=== PATIENT | female | born 1965 | race Caucasian/White ===

== ENCOUNTER 2018-06-26 15:57 | Outpatient (CLI) | payer BC | END 2018-06-26 15:58 | disposition home or self-care (01) | LOC: BICMAMMO 15:57 | PROVIDERS: ATTEND Internal Medicine | DX: Z12.31 Encounter for screening mammogram for malignant neoplasm of breast (principal) | CPT/HCPCS: 77063; 77067 ==

== ENCOUNTER 2019-10-24 06:08 | Outpatient (CLI) | payer BC ==
[2019-10-24 10:53] LABS: Anion Gap 15 mmol/L (10-20); BUN (Urea Nitrogen) 10 mg/dL (9.8-20.1); Calc. Creatinine Clearance 0 mL/min (70-130); Calcium 9.6 mg/dL (7.8-10.44); Carbon Dioxide 25 mmol/L (22-29); Chloride 96 mmol/L (98-107); Estimated GFR-MDRD 67; Glucose 120 mg/dL (70-105); Potassium 3.3 mmol/L (3.5-5.1); Sodium 133 mmol/L (136-145)
--- NOTE | 2019-10-24 18:48 | EKG ---
Test Reason : Blood Pressure : / mmHG Vent. Rate : 092 BPM Atrial Rate : 092 BPM P-R Int : 148 ms QRS Dur : 084 ms QT Int : 358 ms P-R-T Axes : 051 077 -03 degrees QTc Int : 442 ms Normal sinus rhythm T wave abnormality, consider inferior ischemia Abnormal ECG When compared with ECG of 09-JUN-2014 01:36, T wave inversion now evident in Inferior leads Nonspecific T wave abnormality now evident in Anterolateral leads Confirmed by KEMI VALENCIA, DR. Winters ([id number]) on 10/24/2019 6:48:24 PM Referred By: JAIME Confirmed By:DR. Singh MCMULLEN MD
== END 2019-10-24 06:09 | disposition home or self-care (01) ==
LOC: LABBT 06:08
PROVIDERS: ATTEND Neurological Surgery
DX: Z01.818 Encounter for other preprocedural examination (principal); M48.061 Spinal stenosis, lumbar region without neurogenic claudication
CPT/HCPCS: 80048; 93005; 93010

== ENCOUNTER 2019-10-31 07:43 | Day surgery (SDC) | payer BC ==
[2019-10-24 09:40] VITALS: BMI 29.7
--- NOTE | 2019-10-30 15:25 | HP ---
HISTORY OF PRESENT ILLNESS: Ms. Patton is a very pleasant 54-year-old woman here today to discuss severe lower back pain with bilateral radicular pains and what sounds like claudication symptoms since February of this year. She was rolling over in bed and felt the sudden onset of severe pain. She reports subjective weakness, particularly when walking. The pains are in bilateral lower extremities. She reports chronic problems with the right lower extremity stemming many years before this newest problem. However, has never had issues with the left lower extremity until now. She does have a history of anterior and posterior L5-S1 fusion with Dr. Pate in 2006 and 2007 and had done well from that until this most recent episode. She has treated this with epidural steroid injections and medications as directed by Dr. Herrera at [facility] and while they help, her pains are still profound, her pains worsen with walking and bending. CT and myelogram from [facility] reveals excellent hardware installed fusion across L5-S1, however, there does appear to be moderate to severe central canal stenosis at L3-L4 and to some lesser extent at L4-L5 which very likely explains the symptoms that she is experiencing. PAST MEDICAL HISTORY: Significant for chronic pain syndrome, headaches, hypertension. PAST SURGICAL HISTORY: Lumbar spinal fusion. CURRENT MEDICATIONS: Include 1. Tylenol No. 4. 2. Celebrex. 3. Cyclobenzaprine. 4. Gabapentin. 5. Levothyroxine. 6. Lisinopril-hydrochlorothiazide. 7. Tizanidine. 8. Zolpidem. 9. Prempro. 10. Metoprolol. 11. Rizatriptan. ADDITIONAL PAST SURGICAL HISTORY: Dorsal column stimulator, breast reduction and abdominoplasty, finger pinning and battery replacement in the stimulator. PHYSICAL EXAMINATION: GENERAL: She is alert and oriented x3. Gait is mildly antalgic. EXTREMITIES: Lower extremity exam is normal. ASSESSMENT: Lumbar spinal stenosis and radiculopathy. PLAN: Dr. Medina met with the patient, reviewed imaging, advocated for an L3-L5 decompression. He explained to the patient the risks, benefits, and alternatives of the procedure. The patient expressed understanding and elected to move forward with surgery as discussed. I do believe the patient is mentally competent and capable of making medical decisions for herself. We will move forward with surgery as planned. Job ID: [id number]
[2019-10-31] MEDS ORDERED: Midazolam HCl 2 mg/2 ml Vial ONE (08:53)
[2019-10-31] MEDS ORDERED: Bupivacaine 0.25% HCL 30 ML VIAL ONE (09:13)
[2019-10-31] MEDS ORDERED: PHENYLEPHRINE-NS 100 MCG/ML 10 ML SYRINGE ONE (09:31)
[2019-10-31] MEDS ORDERED: Fentanyl 100 MCG/2 ML VIAL ONE ×4 (09:31→12:18)
[2019-10-31] MEDS ORDERED: Ondansetron PF 4 MG/2 ML Vial ONE (09:31)
[2019-10-31] MEDS ORDERED: Lidocaine 1% PF 5 ML VIAL ONE (09:31)
[2019-10-31] MEDS ORDERED: Glycopyrrolate 0.2 MG/ML 5 ML SYRINGE ONE (09:31)
[2019-10-31] MEDS ORDERED: PROPOFOL 200 MG/20 ML VIAL ONE (09:31)
[2019-10-31] MEDS ORDERED: Rocuronium Bromide 10 MG/ML (10ML VIAL) ONE (09:31)
[2019-10-31] MEDS ORDERED: Dexamethasone 20 MG/5 ML VIAL ONE (09:31)
--- NOTE | 2019-10-31 11:42 | OP ---
DATE OF PROCEDURE: 10/31/2019 [employer]ARY DRUM TANNER: Chapincito Quispe PA-C INDICATION: Pain. DIAGNOSIS: Lumbar stenosis. PROCEDURES PERFORMED: Reoperation lumbar decompression L3-L5. ANESTHESIA: General. DESCRIPTION OF PROCEDURE: The patient was brought into the operating room, placed under general anesthesia. She was flipped from the supine to prone position on the operating room table. A linear incision was planned adjacent to a prior incision that was off midline to the right. After prepping and draping and after an appropriate operative pause, the incision was created. The soft tissues were swept away from midline. The dorsal column stimulator leads were identified and carefully moved without excess traction and remained intact throughout the case. The C-arm images obtained to confirm the appropriate levels. After confirming the appropriate levels, an Adson rongeur was used to remove the spinous process of L4 and the superior aspect of L5 and the inferior aspect of L3. The laminectomy was completed using a high-speed cutting drill bit as well as 2, 3, and 4 mm Kerrisons. After decompressing the segment, the wound was irrigated. Hemostasis was maintained throughout. The wound was then closed in anatomic layers and a pressure dressing was applied. There were no known procedural complications. Job ID: [id number]
[2019-10-31] MEDS ORDERED: HYDROcodone/Acetaminophen 5/325 mg Tablet ONE (12:52)
[2019-10-31] MEDS ORDERED: Morphine 2 MG/ML SYRINGE ONE (14:08)
== END 2019-10-31 14:55 | disposition home or self-care (01) ==
LOC: SDC 07:43
PROVIDERS: ATTEND Neurological Surgery
PROC: 01NB0ZZ Release Lumbar Nerve, Open Approach (ICD-10-PCS; principal; 2019-10-31)
DX: M48.061 Spinal stenosis, lumbar region without neurogenic claudication (principal); M54.16 Radiculopathy, lumbar region; G89.4 Chronic pain syndrome; I10 Essential (primary) hypertension; Z79.899 Other long term (current) drug therapy
CPT/HCPCS: 76000; J0690; J1100; J2001; J2250; J2270; J2405; J2704; J3010; S0020

== ENCOUNTER 2021-12-28 01:20 | Emergency (ER) | payer BC ==
[2021-12-28 01:58] LABS: #Monocytes 0.3 thou/uL (0.11-0.59); #Neutrophils 3.3 thou/uL (1.40-6.50); %Basophils 0.3 % (0.0-1.0); %Eosinophils 0.9 % (0.0-10.0); %Lymphocytes 21.6 % (21.0-51.0); %Monocytes 6.3 % (0.0-10.0); %Neutrophils 70.9 % (42.0-75.0); Hemoglobin 12.9 g/dL (12.0-16.0); Mean Corpuscular HGB CONC 35.4 g/dL (32.0-36.0); Mean Corpuscular Hemoglobin 29.4 pg (27.0-31.0); Mean Corpuscular Volume 83.1 fL (78.0-98.0); Mean Platelet Volume 6.9 fL (7.4-10.4); Platelet Count 197 thou/uL (130-400); White Blood Cell (WBC) Count 4.7 thou/uL (4.8-10.8)
[2021-12-28] MEDS ORDERED: Ketorolac Tromethamine 30 MG/ML VIAL ONE (02:15)
[2021-12-28 02:22] LABS: ALT (SGPT) 16 U/L (8-55); AST (SGOT) 20 U/L (5-34); Albumin 4.5 g/dL (3.5-5.0); Alkaline Phosphatase 85 U/L (40-110); Anion Gap 16 mmol/L (10-20); BUN (Urea Nitrogen) 14 mg/dL (9.8-20.1); Calc. Creatinine Clearance 0 mL/min (70-130); Calcium 9.4 mg/dL (7.8-10.44); Carbon Dioxide 24 mmol/L (22-29); Chloride 87 mmol/L (98-107); Globulin 3.1 g/dL (2.4-3.5); Glucose 107 mg/dL (70-105); Lipase 14 U/L (8-78); Potassium 4.4 mmol/L (3.5-5.1); Protein, Total 7.6 g/dL (6.0-8.3); Sodium 123 mmol/L (136-145)
[2021-12-28] MEDS ORDERED: diphenhydrAMINE 50 MG/ML VIAL ONE (03:42)
[2021-12-28] MEDS ORDERED: Metoclopramide HCl 10 MG/2 ML VIAL ONE (03:42)
[2021-12-28] MEDS ORDERED: Aspirin Chewable 81 MG TAB ONE (03:43)
[2021-12-28] MEDS ORDERED: Diazepam 10 MG/2 ML SYRINGE ONE (05:25)
[2021-12-28 05:50] LABS: Bilirubin Negative (Negative); Blood, Urine Negative (Negative); Clarity Clear (Clear); Glucose, Urine (Dipstick) Normal (Negative); Ketone, Urine 20 mg/dL (Negative); Leukocyte Negative Leu/uL (Negative); Nitrite Negative (Negative); Protein, Urine (Dipstick) Negative (Neg-Trace); Specific Gravity, Urine 1.012 (1.002-1.036); Urobilinogen Normal mg/dL (Less than 2); pH, Urine 7.5 (5.0-9.0)
[2021-12-28 15:31] LABS: SARS-CoV-2 PCR by NAA DETECTED (NotDetected)
== END 2021-12-28 07:23 | disposition home or self-care (01) ==
LOC: ERS 01:20
DX: U07.1 COVID-19 (principal); R07.89 Other chest pain; I10 Essential (primary) hypertension
CPT/HCPCS: 71045; 80053; 81003; 83690; 84484; 85025; 93005; 96374; 96375; J1200; J1885; J2765; J3360; U0003; U0005